=== PATIENT | male | born 1995 | race Caucasian/White ===

== ENCOUNTER 2024-06-01 14:56 | Emergency (ER) | payer MEDICAID, SELFPAY ==
[2024-06-01 16:08] VITALS: BP 138/94; PULSE 82; RESP 19; TEMP 36.7; O2SAT 100; BMI 17.6
--- NOTE | 2024-06-01 16:11 | XR_ITS ---
Examination: PA lateral chest 2 views Technique: Upright PA lateral chest 2 views Exam date and time: June 11, 2024 at 1629 hrs. Indications: Onset chest pain today Findings: Normal heart size Lungs are clear The osseous structures are intact Impression: No active disease
--- NOTE | 2024-06-01 16:11 | EKG_ITS ---
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
--- NOTE | 2024-06-01 16:11 | PD.EDRME ---
Rapid Medical Screening Exam RME Arrival date/time: 06/01/24 14:56 29-year-old male with past medical history of anxiety presents emergency department complaining of palpitations with nausea and vomiting that started earlier today. Chief Complaint: General Adult/Misc Complain Time Seen by Provider: 06/01/24 16:11 Vital signs: Vital Signs Temperature 98.1 F 06/01/24 16:08 Pulse Rate 82 06/01/24 16:08 Respiratory Rate 19 06/01/24 16:08 Blood Pressure 138/94 H 06/01/24 16:08 Pulse Oximetry (%) 100 06/01/24 16:08 Oxygen Delivery Method Room Air 06/01/24 16:08
[2024-06-01 16:38] LABS: Basophils # (Auto) 0.1 Thou/mm3 (0.0-0.2); Basophils % (Auto) 1 % (0-2.5); Eosinophils # (Auto) 0.1 Thou/mm3 (0.0-0.5); Eosinophils % (Auto) 1 % (0-10); Hematocrit 46.7 % (41.0-53.0); Hemoglobin 15.7 g/dL (13.5-16.0); Immature Granulocytes % (Auto) 1 % (0-0); Immature Granulocytes Auto 0.04 Thou/mm3 (0.00-0.00); Lymphocytes # (Auto) 1.4 Thou/mm3 (1.0-4.8); Lymphocytes % (Auto) 23 % (10-50); Mean Corpuscular HGB Conc 33.6 g/dl (31.0-37.0); Mean Corpuscular Hemoglobin 29.8 pg (25.0-35.0); Mean Corpuscular Volume 89 fL (80-100); Monocytes # (Auto) 0.6 Thou/mm3 (0.0-0.8); Monocytes % (Auto) 10 % (0-12); Neutrophils # (Auto) 3.7 Thou/mm3 (1.8-7.7); Neutrophils % (Auto) 63 % (37-80); Nucleated Red Blood Cell % 0 /100 WBC (0); Platelet Count 260 Thou/mm3 (140-440); RDW Standard Deviation 40.1 fL (35.1-43.9); Red Blood Count 5.27 Miln/mm3 (4.50-5.90); White Blood Count 5.9 Thou/mm3 (3.8-10.6)
[2024-06-01 16:55] LABS: Albumin, Serum 5.3 gm/dL (3.5-5.0); Alkaline Phosphatase 76 U/L (46-116); Anion Gap 5 (7-16); Aspartate Amino Transferase 18 U/L (0-34); BUN/Creatinine Ratio 8 Ratio (12-20); Bilirubin,Total 1.1 mg/dL (0.3-1.2); Blood Urea Nitrogen 8 mg/dL (9-23); Carbon Dioxide 30.5 mMol/L (20.0-31.0); Chloride 104 mMol/L (98-107); Estimated Creatinine Clearance 89.7 mL/min (>60); Globulin 2.7 gm/dL (2.3-3.5); Glucose 83 mg/dL (74-106); Osmolality,Calculated 274 (275-295); Potassium 3.9 mMol/L (3.4-5.1); Sodium 139 mMol/L (136-145); Troponin I < 0.002 ng/mL (0.0-0.045); eGFR > 60 See Note
[2024-06-01 17:04] LABS: Alanine Aminotransferase 9 U/L (10-49)
[2024-06-01 17:35] LABS: Amphetamine/Methamp Scrn,U Negative (Negative); Barbiturate Screen,Urine Negative (Negative); Benzodiazepines Screen,Urine Negative (Negative); Benzoylecgonine Screen, Ur Negative (Negative); Fentanyl Screen,Urine Negative (Negative); Opiate Screen,Urine Negative (Negative); THC Screen,Urine Positive (Negative)
[2024-06-01 19:28] VITALS: BP 123/86; PULSE 100; RESP 18; TEMP 37.3; O2SAT 100
--- NOTE | 2024-06-01 19:29 | EDNOTE_ITS ---
ED General RME/HPI General Chief complaint: General Adult/Misc Complain Stated complaint: FELT HEART DROP SEVERAL TIMES THEN HR SHOT UP Time Seen by Provider: 06/01/24 16:11 Arrival date/time: 06/01/24 14:56 RME / HPI RME / HPI narrative: 29-year-old male with past medical history of anxiety presents emergency department complaining of palpitations with nausea and vomiting that started earlier today. According to the patient heart rate dropped to 77 and went up all the way to 120. Lasting for few seconds. Currently patient is not having any symptoms. Related Data Previous Rx's ?Medication ?Instructions ?Recorded ibuprofen 800 mg tablet 800 mg PO TID PRN pain #30 tabs 06/12/22 ondansetron 4 mg disintegrating 4 mg PO Q8H PRN nausea and 07/16/23 tablet vomiting #10 tabs diphenhydramine HCl 25 mg capsule 25 mg PO Q8H PRN allergic symptoms 01/03/24 (Benadryl) #20 caps ibuprofen 600 mg tablet 600 mg PO Q6H #30 tabs 01/03/24 Allergies Allergy/AdvReac Type Severity Reaction Status Date / Time No Known Allergies Allergy Verified 06/01/24 14:59 Review of Systems Review of Systems Narrative Review of Systems: Review of system reviewed and within normal limits except mentioned in HPI ED Exam Narrative Physical exam: VITAL SIGNS: Reviewed. GENERAL APPEARANCE: Alert and interactive, follows commands, no acute distress, HEAD AND FACE: Non-traumatic. ENT: PERRL, pink conjunctivitis, eyelid no trauma, Mucous membrane moist. NECK: Supple, nontender, no nuchal rigidity. CHEST: No tenderness, no crepitus, no paradoxical movement, no retractions. LUNGS: Clear, well ventilated, symmetric, no rales, no wheezing, no ronchi, no stridor, good breath sounds bilaterally. HEART: Regular rate, regular rhythm, no murmur, no gallops. ABDOMEN: Soft, positive bowel sounds, nondistended, no guarding, nontender, no rebound, no masses, RECTAL: Deferred. GENITAL: Deferred. NEUROLOGICAL: Gross motor function intact sensory function intact, Appropriate for age. MUSCULOSKELETAL: low back nontender, full range of motion. EXTREMITIES: Nontender, full range of motion. SKIN: Color pink, dry, no rash, no lacerations, no abrasions, no contusions. LYMPHATICS: Deferred. Course Quality Measures none Orders Category Date Time Status EKG (ED ONLY) *Do not use* NOW Care 06/01/24 16:11 Completed EKG (ED Only) Stat Exams 06/01/24 16:11 Draft XR chest 2V Stat Exams 06/01/24 16:11 Completed CBC Stat Lab 06/01/24 16:21 Completed Comprehensive Metabolic Panel Stat Lab 06/01/24 16:21 Completed Drug Screen,Urine Stat Lab 06/01/24 16:41 Completed Mag [Magnesium] Stat Lab 06/01/24 16:21 Completed Troponin I Stat Lab 06/01/24 16:21 Completed Vital Signs Vital signs: Vital Signs Temperature 98.1 F 06/01/24 16:08 Pulse Rate 82 06/01/24 16:08 Respiratory Rate 19 06/01/24 16:08 Blood Pressure 138/94 H 06/01/24 16:08 Pulse Oximetry (%) 100 06/01/24 16:08 Oxygen Delivery Method Room Air 06/01/24 16:08 MDM Patient data External records reviewed:: None Clinical information provided by:: none Social determinants that could affect healthcare access:: none Patient has the following chronic illnesses:: anxiety How is presenting disease/condition affected by chronic disease/condition?: e xacerbated by Evaluation data The following diagnostics were reviewed and interpreted by me:: lab results, radiology exam(s) and EKG tracing(s) Lab and/or radiology exams considered but not ordered:: none Interpretation Summary: Laboratory workup all came back unremarkable. EKG showed normal sinus rhythm, ventricular rate of 69 bpm, no ST segment elevation depression noted. I personally reviewed and interpreted the x-ray of this patient. There is no acute abnormalities found, no infiltrates no pneumothorax no hemothorax normal chest x-ray. Review of other structures was without significant abnormal findings also. I additionally reviewed the radiologist report and agree with the interpretation. Medications Medications considered but not ordered:: None Medication administrations:: None Consultations Consultation(s) initiated? (list below): No Consultation #1 (Physician, Specialty, Details): None Diagnosis Differential Diagnosis ED Complaint MDM: Palpitation, anxiety, dehydration Most likely diagnosis given after review of the tests above:: Palpitation Admission Indicated Admission indicated?: not indicated Explain why admission is indicated or not indicated:: Stable Admission Request Was there a request for admission?: No Disposition Plan Disposition Plan: Discharge Discharge Attestation Discharge Attestation: The patient was given an opportunity to ask questions and understood the discharge instructions. Discharge instructions specifically effects, indications for sooner follow up or return to the emergency department, and the expected course of current diagnosis. Patient condition: Stable Medical Decision Making MDM Narrative MDM Narrative: 29-year-old male patient with significant history of anxiety,presents emergency department complaining of palpitations with nausea and vomiting that started earlier today. According to the patient heart rate dropped to 77 and went up all the way to 120. Lasting for few seconds. Currently patient is not having any symptoms. Patient's workup today cardiac workup, came back normal. No recurrence of symptoms noted in the emergency room. Patient is ambulatory patient was advised to closely follow-up with PCP and for referral to circus roustabout if symptoms persist. Patient agrees with the plan. Patient's told me that he could be secondary to his anxiety causing the symptoms. Differential Diagnosis Differential Diagnosis: Palpitation, anxiety, dehydration Lab Data 06/01/24 16:21 06/01/24 16:21 Labs: Lab Results 06/01/24 06/01/24 Range/Units 16:21 16:41 WBC 5.9 (3.8-10.6) Thou/mm3 RBC 5.27 (4.50-5.90) Miln/mm3 Hgb 15.7 (13.5-16.0) g/dL Hct 46.7 (41.0-53.0) % MCV 89 (80-100) fL MCH 29.8 (25.0-35.0) pg MCHC 33.6 (31.0-37.0) g/dl RDW Std Deviation 40.1 (35.1-43.9) fL Plt Count 260 (140-440) Thou/mm3 Neut % (Auto) 63 (37-80) % Lymph % (Auto) 23 (10-50) % [place] % (Auto) 10 (0-12) % Eos % (Auto) 1 (0-10) % Baso % (Auto) 1 (0-2.5) % Neut # (Auto) 3.7 (1.8-7.7) Thou/mm3 Lymph # (Auto) 1.4 (1.0-4.8) Thou/mm3 [place] # (Auto) 0.6 (0.0-0.8) Thou/mm3 Eos # (Auto) 0.1 (0.0-0.5) Thou/mm3 Baso # (Auto) 0.1 (0.0-0.2) Thou/mm3 Immature Gran # (Auto) 0.04 H (0.00-0.00) Thou/mm3 Absolute Nucleated RBC 0.00 (0.00-0.00) Thou/mm3 Immature Gran % 1 H (0-0) % Nucleated RBC % 0 (0) /100 WBC Sodium 139 (136-145) mMol/L Potassium 3.9 (3.4-5.1) mMol/L Chloride 104 (98-107) mMol/L Carbon Dioxide 30.5 (20.0-31.0) mMol/L Anion Gap 5 L (7-16) BUN 8 L (9-23) mg/dL Creatinine 1.0 (0.6-1.3) mg/dL Estim Creat Clear Calc 89.7 (>60) mL/min eGFR > 60 (60 - ) See Note BUN/Creatinine Ratio 8 L (12-20) Ratio Glucose 83 (74-106) mg/dL Calculated Osmolality 274 L (275-295) Calcium 10.0 (8.3-10.6) mg/dL Corrected Calcium 10.0 (8.5-10.1) mg/dL Magnesium 2.0 (1.6-2.6) mg/dL Total Bilirubin 1.1 (0.3-1.2) mg/dL AST 18 (0-34) U/L ALT 9 L (10-49) U/L Alkaline Phosphatase 76 (46-116) U/L Troponin I < 0.002 (0.0-0.045) ng/mL Total Protein 8.0 (5.7-8.2) gm/dL Albumin 5.3 H (3.5-5.0) gm/dL Globulin 2.7 (2.3-3.5) gm/dL Albumin/Globulin Ratio 2.0 (1.2-2.2) Urine Opiates Screen Negative (Negative) Urine Fentanyl Screen Negative (Negative) Ur Barbiturates Screen Negative (Negative) U Amphetamin/Meth Scrn Negative (Negative) U Benzodiazepines Scrn Negative (Negative) U Cocaine Metab Screen Negative (Negative) U Marijuana (THC) Screen Positive A (Negative) Discharge Plan Plan Patient Disposition: HOME (Self Care) Disposition Comment: stable Prescriptions/Referrals Prescriptions/Med Rec: No Action ibuprofen 800 mg tablet 800 mg PO TID PRN (Reason: pain) Qty: 30 0RF ondansetron 4 mg tablet,disintegrating 4 mg PO Q8H PRN (Reason: nausea and vomiting) Qty: 10 0RF diphenhydramine HCl [Benadryl] 25 mg capsule 25 mg PO Q8H PRN (Reason: allergic symptoms) Qty: 20 0RF ibuprofen 600 mg tablet 600 mg PO Q6H Qty: 30 0RF Referrals: No Primary/Family,Physician [Primary Care Provider] - In 1 week Problem List Clinical Impression: Palpitations Patient/Caregiver Discharge Instructions Discharge Activity: activity as tolerated Education Materials: ED Palpitations Additional Instructions: Thank you for the opportunity for serving you today. You are stable for discharged . You are advised to: Follow-up with your PCP in 1 to 2 days Return to ED for worsening of symptoms Print Language: Syrian Stand Alone Forms: Sylvia Award Info., Patient Portal Info Letter PA/EDUCATIONAL PROGRAMMING DIRECTOR Supervising Physician PA/EDUCATIONAL PROGRAMMING DIRECTOR Supervising Physician: MD Guerita
== END 2024-06-01 19:32 | disposition home or self-care (01) ==
PROVIDERS: Emergency Provider Emergency Medicine
DX: I49.8 Other specified cardiac arrhythmias (principal); R07.9 Chest pain, unspecified
CPT/HCPCS: 36415; 71046; 80053; 80307; 83735; 84484; 85025; 93005; 99283

== ENCOUNTER 2024-06-02 14:02 | Emergency (ER) | payer MEDICAID, SELFPAY ==
[2024-06-02 14:26] VITALS: BP 117/81; PULSE 78; RESP 16; TEMP 36.9; O2SAT 99; BMI 19.8
--- NOTE | 2024-06-02 14:57 | EKG_ITS ---
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
--- NOTE | 2024-06-02 14:57 | PD.EDRME ---
Rapid Medical Screening Exam RME Arrival date/time: 06/02/24 14:02 29-year-old male presents emergency department complaining of palpitations and heart rate increasing into the 130s at rest and during ambulation. Patient reports similar symptoms happened yesterday at ER visit and discharged home. Patient reports has pending visit with good humor vendor. Chief Complaint: Arrhythmia/Palpitations Vital signs: Vital Signs Temperature 98.4 F 06/02/24 14:26 Pulse Rate 78 06/02/24 14:26 Respiratory Rate 16 06/02/24 14:26 Blood Pressure 117/81 06/02/24 14:26 Pulse Oximetry (%) 99 06/02/24 14:26 Oxygen Delivery Method Room Air 06/02/24 14:26 Vital signs reviewed by provider: Yes
[2024-06-02 15:36] LABS: Basophils % (Auto) 1 % (0-2.5); Eosinophils % (Auto) 1 % (0-10); Hematocrit 45.8 % (41.0-53.0); Hemoglobin 15.6 g/dL (13.5-16.0); Immature Granulocytes % (Auto) 1 % (0-0); Immature Granulocytes Auto 0.03 Thou/mm3 (0.00-0.00); Lymphocytes # (Auto) 1.2 Thou/mm3 (1.0-4.8); Lymphocytes % (Auto) 20 % (10-50); Mean Corpuscular HGB Conc 34.1 g/dl (31.0-37.0); Mean Corpuscular Hemoglobin 30.1 pg (25.0-35.0); Mean Corpuscular Volume 88 fL (80-100); Monocytes # (Auto) 0.5 Thou/mm3 (0.0-0.8); Monocytes % (Auto) 7 % (0-12); Neutrophils # (Auto) 4.5 Thou/mm3 (1.8-7.7); Neutrophils % (Auto) 71 % (37-80); Nucleated Red Blood Cell % 0 /100 WBC (0); Platelet Count 251 Thou/mm3 (140-440); RDW Standard Deviation 39.6 fL (35.1-43.9); Red Blood Count 5.19 Miln/mm3 (4.50-5.90); White Blood Count 6.3 Thou/mm3 (3.8-10.6)
[2024-06-02 15:41] LABS: B-Type Natriuretic Peptide < 20 pg/mL (0-100)
[2024-06-02 15:50] LABS: INR 1.1 (0.9-1.3); Partial Thromboplastin Time 26.3 Seconds (22.0-36.0)
[2024-06-02 15:52] LABS: Alanine Aminotransferase 9 U/L (10-49); Albumin, Serum 5.2 gm/dL (3.5-5.0); Albumin/Globulin Ratio 1.9 (1.2-2.2); Alkaline Phosphatase 68 U/L (46-116); Anion Gap 6 (7-16); Aspartate Amino Transferase 18 U/L (0-34); BUN/Creatinine Ratio 7 Ratio (12-20); Bilirubin,Total 1.8 mg/dL (0.3-1.2); Blood Urea Nitrogen 7 mg/dL (9-23); Calcium 10.2 mg/dL (8.3-10.6); Calcium (Corrected) 10.2 mg/dL (8.5-10.1); Carbon Dioxide 26.9 mMol/L (20.0-31.0); Chloride 103 mMol/L (98-107); Estimated Creatinine Clearance 89.3 mL/min (>60); Globulin 2.8 gm/dL (2.3-3.5); Glucose 94 mg/dL (74-106); LDH (Lactate Dehydrogenase) 151 U/L (120-246); Osmolality,Calculated 269 (275-295); Potassium 3.9 mMol/L (3.4-5.1); Sodium 136 mMol/L (136-145); Troponin I < 0.020 ng/mL (0.0-0.045); eGFR > 60 See Note
--- NOTE | 2024-06-02 16:24 | EDNOTE_ITS ---
ED Arrhythmia Palp. RME/HPI General Chief Complaint: Arrhythmia/Palpitations Stated Complaint: PALPITATONS, DIZZY, TIRED, ANXIOUS Time Seen by Provider: 06/02/24 16:00 Source: patient Arrival date/time: 06/02/24 14:02 29-year-old male presents emergency department complaining of palpitations and heart rate increasing into the 130s at rest and during ambulation. Patient reports similar symptoms happened yesterday at ER visit and discharged home. Patient reports has pending visit with manufacturing manager. Mode of arrival: ambulatory Limitations: no limitations RME / HPI RME / HPI narrative: 06/02/24 14:02 29-year-old male presents emergency department complaining of palpitations and heart rate increasing into the 130s at rest and during ambulation. Patient reports similar symptoms happened yesterday at ER visit and discharged home. Patient reports has pending visit with manufacturing manager. Related Data Previous Rx's ?Medication ?Instructions ?Recorded ibuprofen 800 mg tablet 800 mg PO TID PRN pain #30 tabs 06/12/22 ondansetron 4 mg disintegrating 4 mg PO Q8H PRN nausea and 07/16/23 tablet vomiting #10 tabs diphenhydramine HCl 25 mg capsule 25 mg PO Q8H PRN allergic symptoms 01/03/24 (Benadryl) #20 caps ibuprofen 600 mg tablet 600 mg PO Q6H #30 tabs 01/03/24 Allergies Allergy/AdvReac Type Severity Reaction Status Date / Time No Known Allergies Allergy Verified 06/01/24 14:59 Review of Systems Review of Systems Systems Reviewed: All systems reviewed, normal except as documented Constitutional Constitutional: Reports system reviewed and no additional complaints, except as documented, Denies body ache(s), Denies chills and Denies fever(s) Eyes Eyes: Reports system reviewed and no additional complaints, except as documented and Denies change in vision ENT Ears, Nose, Mouth, and Throat: Reports system reviewed and no additional complaints, except as documented, Denies disequilibrium, Denies dizziness, Denies sore throat and Denies vertigo Cardiovascular Cardiovascular: Reports system reviewed and no additional complaints, except as documented, Denies chest pain, Denies dyspnea and Reports rapid heart rate Respiratory Respiratory: Reports system reviewed and no additional complaints, except as documented, Denies chest congestion, Denies cough and Denies dyspnea Gastrointestinal Gastrointestinal: Reports system reviewed and no additional complaints, except as documented, Denies abdominal pain, Denies nausea and Denies vomiting Musculoskeletal Musculoskeletal: Reports system reviewed and no additional complaints, except as documented, Denies abnormal gait and Denies arthralgias Integumentary/Breasts Skin/Breast: Reports system reviewed and no additional complaints, except as documented, Denies erythema, Denies rash and Denies wounds Neurologic Neurologic: Reports system reviewed and no additional complaints, except as documented, Denies abnormal gait, Denies disequilibrium, Denies dizziness and Denies vertigo Past Medical History Past Medical History CARDIAC: Negative Congestive Heart Failure RESPIRATORY: Negative Chronic Obstructive Pulmonary Disease (COPD) GENITOURINARY: Negative Renal Disease ENDOCRINE: Negative Diabetes Mellitus Type 1 or Diabetes Mellitus Type 2 Social History SMOKING STATUS: Never smoker ED Exam General Limitations: Present no limitations General appearance: Present alert and in no apparent distress Head Head exam: Present atraumatic Eye Eye exam: Present normal appearance, PERRL and EOMI ENT ENT exam: Present normal exam, normal oropharynx and mucous membranes moist Neck Neck exam: Present normal inspection, full ROM and trachea midline Chest Chest inspection: Present normal inspection and symmetric chest wall rise Respiratory Respiratory exam: Present normal lung sounds bilaterally Cardiovascular Cardiovascular exam: Present regular rate, normal rhythm and normal heart sounds Abdominal Exam Abdominal exam: Present soft and normal bowel sounds Extremities Exam Extremities exam: Present normal inspection and full ROM Back Exam Back exam: Present normal inspection and full ROM Neurological Exam Neurological exam: Present alert, oriented X3 and CN II-XII intact Psychiatric Psychiatric exam: Present normal affect and normal mood Skin Skin exam: Present warm, dry, intact and normal color Course Quality Measures none Orders Category Date Time Status EKG (ED ONLY) *Do not use* NOW Care 06/02/24 14:57 Completed EKG (ED Only) Stat Exams 06/02/24 14:57 Draft B-Type Natriuretic Peptide Stat Lab 06/02/24 15:15 Completed CBC Stat Lab 06/02/24 15:15 Completed Comprehensive Metabolic Panel Stat Lab 06/02/24 15:15 Completed Drug Screen,Urine Stat Lab 06/02/24 16:00 Received LDH (Lactate Dehydrogenase) Stat Lab 06/02/24 15:15 Completed Magnesium Stat Lab 06/02/24 15:15 Completed Partial Thromboplastin Time Stat Lab 06/02/24 15:15 Completed Prothrombin Time with INR Stat Lab 06/02/24 15:15 Completed Troponin I Stat Lab 06/02/24 15:15 Completed Vital Signs Vital signs: Vital Signs Temperature 98.4 F 06/02/24 14:26 Pulse Rate 78 06/02/24 14:26 Respiratory Rate 16 06/02/24 14:26 Blood Pressure 117/81 06/02/24 14:26 Pulse Oximetry (%) 99 06/02/24 14:26 Oxygen Delivery Method Room Air 06/02/24 14:26 99% RA WNL. Procedures -ED EKG Interpretation #1: Date of EK06/02/24 Time of EK:06 Rate: 63 Interpretation: Interpreted by me EKG Impression: Normal sinus rhythm, No acute ST-T changes, No ectopy and No ischemic changes Arrhythmia/Palpitations MDM Narrative MDM Narrative:: 29-year-old male presents emergency department complaining of palpitations and heart rate increasing into the 130s at rest and during ambulation. Patient reports similar symptoms happened yesterday at ER visit and discharged home. Patient reports has pending visit with manufacturing manager. Patient denies any energy drink use. Patient reports fast heart only last a couple seconds. Patients CBC, CMP, Troponin, BNP, and Chest XR unremarkable. EKG SR. Patient appears non toxic and hemodynamically stable. Instructed follow up with primary care provider and keep visit with manufacturing manager. Instructed return to ER for any worsening symptoms or as needed. Patient data External records reviewed:: [facility] previous records Clinical information provided by:: patient Social determinants that could affect healthcare access:: none Patient has the following chronic illnesses:: see chart How is presenting disease/condition affected by chronic disease/condition?: uneffected by Evaluation data The following diagnostics were reviewed and interpreted by me:: lab results, radiology exam(s) and EKG tracing(s) Lab and/or radiology exams considered but not ordered:: ordered Interpretation Summary: interpreted by me Medications / Prescriptions Medications or Prescriptions considered but not ordered:: n/a Medication administrations:: n/a Consultations Consultation(s) initiated? (list below): No Diagnosis Differential diagnosis arrhythmia/palpitations: palpitations, anxiety, sinus tachycardia, supraventricular tachycardia and WPW Most likely diagnosis given after review of the tests above:: anxiety palpitations Admission Indicated Admission indicated?: not indicated Admission Request Was there a request for admission?: No Disposition Plan Disposition Plan: Discharge Discharge Attestation Discharge Attestation: The patient and all family members were given an opportunity to ask questions and understood the discharge instructions. Discharge instructions specifically effects, indications for sooner follow up or return to the emergency department, and the expected course of current diagnosis. Patient condition: Stable Discharge Plan Plan Patient Disposition: HOME (Self Care) Disposition Comment: Stable Prescriptions/Referrals Prescriptions/Med Rec: No Action ibuprofen 800 mg tablet 800 mg PO TID PRN (Reason: pain) Qty: 30 0RF ondansetron 4 mg tablet,disintegrating 4 mg PO Q8H PRN (Reason: nausea and vomiting) Qty: 10 0RF diphenhydramine HCl [Benadryl] 25 mg capsule 25 mg PO Q8H PRN (Reason: allergic symptoms) Qty: 20 0RF ibuprofen 600 mg tablet 600 mg PO Q6H Qty: 30 0RF Referrals: No Primary/Family,Physician [Primary Care Provider] - In 1 week Problem List Clinical Impression: Anxiety, Palpitations Patient/Caregiver Discharge Instructions Discharge Activity: activity as tolerated Education Materials: Understanding Heart Palpitations, ED Anxiety Reaction, ED Palpitations Additional Instructions: Follow-up with primary care provider 24 to 48 hours. Follow-up with manufacturing manager as discussed. Return to emergency department for any worsening symptoms or as needed. Print Language: Haitian Stand Alone Forms: Sylvia Award Info., Patient Portal Info Letter PA/PRINT PRODUCTION COORDINATOR Supervising Physician PA/PRINT PRODUCTION COORDINATOR Supervising Physician: Dr. Fowler
[2024-06-02 16:33] VITALS: BP 135/67; PULSE 87; RESP 19; TEMP 37.1; O2SAT 99
[2024-06-02 16:48] LABS: Amphetamine/Methamp Scrn,U Negative (Negative); Barbiturate Screen,Urine Negative (Negative); Benzodiazepines Screen,Urine Negative (Negative); Benzoylecgonine Screen, Ur Negative (Negative); Fentanyl Screen,Urine Negative (Negative); Opiate Screen,Urine Negative (Negative); THC Screen,Urine Positive (Negative)
== END 2024-06-02 16:33 | disposition home or self-care (01) ==
PROVIDERS: Emergency Provider Emergency Medicine
DX: F41.9 Anxiety disorder, unspecified (principal); R00.2 Palpitations
CPT/HCPCS: 36415; 80053; 80307; 83615; 83735; 83880; 84484; 85025; 85610; 85730; 93005; 99283

== ENCOUNTER 2024-06-04 13:40 | Emergency (ER) | payer MEDICAID, SELFPAY ==
[2024-06-04 14:30] VITALS: BP 126/84; PULSE 74; RESP 17; TEMP 37.1; O2SAT 99; BMI 19.3
--- NOTE | 2024-06-04 14:31 | EKG_ITS ---
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
--- NOTE | 2024-06-04 14:31 | XR_ITS ---
Examination: PA lateral chest 2 views TECHNIQUE: Upright PA lateral chest 2 views Exam date and time: June 04, 2024 1455 hours INDICATIONS: Intermittent chest pain several days FINDINGS: Normal heart size No pneumonia or pulmonary edema Intact osseous structures Stable tiny pulmonary nodule right upper lobe compared with June 01, 2024 IMPRESSION: No active disease
[2024-06-04 15:53] LABS: Troponin I < 0.020 ng/mL (0.0-0.045)
--- NOTE | 2024-06-04 15:58 | EDNOTE_ITS ---
ED Chest Pain RME/HPI General Chief Complaint: Chest Pain Stated Complaint: HEART PALPITATIONS X MONDAY; UNABLE TO EAT Time Seen by Provider: 06/04/24 13:57 Arrival date/time: 06/04/24 13:40 29-year-old male with history of anxiety presents the emergency department complaint of anxiety and palpitations patient apologizes as this has been his third visit to the emergency department for the same Limitations: no limitations Related Data Previous Rx's ?Medication ?Instructions ?Recorded ibuprofen 800 mg tablet 800 mg PO TID PRN pain #30 tabs 06/12/22 ondansetron 4 mg disintegrating 4 mg PO Q8H PRN nausea and 07/16/23 tablet vomiting #10 tabs diphenhydramine HCl 25 mg capsule 25 mg PO Q8H PRN allergic symptoms 01/03/24 (Benadryl) #20 caps ibuprofen 600 mg tablet 600 mg PO Q6H #30 tabs 01/03/24 Allergies Allergy/AdvReac Type Severity Reaction Status Date / Time No Known Allergies Allergy Verified 06/04/24 13:43 Review of Systems Review of Systems Systems Reviewed: All systems reviewed, normal except as documented Constitutional Constitutional: Reports system reviewed and no additional complaints, except as documented, Denies fever(s) and Denies headache(s) Eyes Eyes: Reports system reviewed and no additional complaints, except as documented and Denies blurry vision ENT Ears, Nose, Mouth, and Throat: Reports system reviewed and no additional complaints, except as documented, Denies headache(s), Denies nasal congestion and Denies nasal discharge Cardiovascular Cardiovascular: Reports system reviewed and no additional complaints, except as documented, Denies chest pain and Denies dyspnea Respiratory Respiratory: Reports system reviewed and no additional complaints, except as documented, Denies chest congestion, Denies cough and Denies dyspnea Gastrointestinal Gastrointestinal: Reports system reviewed and no additional complaints, except as documented and Denies abdominal pain Integumentary/Breasts Skin/Breast: Reports system reviewed and no additional complaints, except as documented and Denies rash Neurologic Neurologic: Reports system reviewed and no additional complaints, except as documented, Reports as per HPI and Denies headache(s) Psychiatric Psychiatric: Reports system reviewed and no additional complaints, except as documented, Reports anxiety, Denies homicidal ideation, Denies hopelessness and Denies suicidal ideation ED Exam General Limitations: Present no limitations General appearance: Present alert and in no apparent distress Head Head exam: Present atraumatic Eye Eye exam: Present normal appearance, PERRL and EOMI ENT ENT exam: Present normal exam, normal oropharynx and mucous membranes moist Neck Neck exam: Present normal inspection, full ROM and trachea midline Chest Chest inspection: Present normal inspection and symmetric chest wall rise Respiratory Respiratory exam: Present normal lung sounds bilaterally Cardiovascular Cardiovascular exam: Present regular rate, normal rhythm and normal heart sounds; Absent bradycardia, tachycardia, irregular rhythm or JVD Abdominal Exam Abdominal exam: Present soft and normal bowel sounds Extremities Exam Extremities exam: Present normal inspection and full ROM Back Exam Back exam: Present normal inspection and full ROM Neurological Exam Neurological exam: Present alert, oriented X3, CN II-XII intact, normal gait and reflexes normal; Absent motor sensory deficit Psychiatric Psychiatric exam: Present anxious; Absent flat affect, manic, homicidal ideation or suicidal ideation Skin Skin exam: Present warm, dry, intact and normal color Course Quality Measures none Orders Category Date Time Status EKG (ED ONLY) *Do not use* NOW Care 06/04/24 14:31 Completed EKG (ED Only) Stat Exams 06/04/24 14:31 Draft XR chest 2V Stat Exams 06/04/24 14:31 Completed Troponin I Stat Lab 06/04/24 15:14 Completed Vital Signs Vital signs: Vital Signs Temperature 98.8 F 06/04/24 14:30 Pulse Rate 74 06/04/24 14:30 Respiratory Rate 17 06/04/24 14:30 Blood Pressure 126/84 06/04/24 14:30 Pulse Oximetry (%) 99 06/04/24 14:30 Oxygen Delivery Method Room Air 06/04/24 14:30 O2 saturation 99% room air within normal limits Procedures -ED EKG Interpretation #1: Date of EK06/04/24 Time of EK:37 Rate: 68 Interpretation: Interpreted by me EKG Impression: Normal sinus rhythm, No acute ST-T changes, No ectopy, Sinus arrhythmia, No ischemic changes, Normal QRS and Normal intervals Chest Pain MDM Narrative MDM Narrative:: 29-year-old male with history of anxiety presents the emergency department complaint of anxiety and palpitations patient apologizes as this has been his third visit to the emergency department for the same On exam patient does appear to be anxious Chest x-ray, troponin and EKG obtained no acute emergent findings noted Symptoms consistent with anxiety Patient discharged home in no distress to follow-up with primary care doctor in the next 24 to 48 hours and for any worsening symptoms to return to the ER immediately Patient data External records reviewed:: [facility] previous records Clinical information provided by:: patient Social determinants that could affect healthcare access:: mental health Patient has the following chronic illnesses:: Anxiety How is presenting disease/condition affected by chronic disease/condition?: caused by Evaluation data The following diagnostics were reviewed and interpreted by me:: lab results, radiology exam(s) and EKG tracing(s) Lab and/or radiology exams considered but not ordered:: Labs, radiology, EKG obtained Interpretation Summary: Reviewed by me Medications / Prescriptions Medications or Prescriptions considered but not ordered:: Given no meds Medication administrations:: No meds given Consultations Consultation(s) initiated? (list below): No Diagnosis Chest Pain Differential Diagnosis: atypical chest pain, st elevation myocardial infarction, costochondritis and other (Anxiety) Most likely diagnosis given after review of the tests above:: Anxiety Admission Indicated Admission indicated?: not indicated Admission Request Was there a request for admission?: No Disposition Plan Disposition Plan: Discharge Discharge Attestation Discharge Attestation: The patient and all family members were given an opportunity to ask questions and understood the discharge instructions. Discharge instructions specifically effects, indications for sooner follow up or return to the emergency department, and the expected course of current diagnosis. Patient condition: Stable Discharge Plan Plan Patient Disposition: HOME (Self Care) Disposition Comment: Stable Prescriptions/Referrals Prescriptions/Med Rec: No Action ibuprofen 800 mg tablet 800 mg PO TID PRN (Reason: pain) Qty: 30 0RF ondansetron 4 mg tablet,disintegrating 4 mg PO Q8H PRN (Reason: nausea and vomiting) Qty: 10 0RF diphenhydramine HCl [Benadryl] 25 mg capsule 25 mg PO Q8H PRN (Reason: allergic symptoms) Qty: 20 0RF ibuprofen 600 mg tablet 600 mg PO Q6H Qty: 30 0RF Referrals: No Primary/Family,Physician [Primary Care Provider] - In 1 week Problem List Clinical Impression: Anxiety, Chest pain, non-cardiac Patient/Caregiver Discharge Instructions Additional Instructions: Please follow up with your primary care doctor in the next 24-48hrs for any worsening symptoms return here immediately Print Language: Yakut Stand Alone Forms: [employer] Patient Portal Info Letter PA/BALLOON TESTER Supervising Physician PA/BALLOON TESTER Supervising Physician: Dr sauer
[2024-06-04 16:32] VITALS: PULSE 72; RESP 18; TEMP 37; O2SAT 98
== END 2024-06-04 16:37 | disposition home or self-care (01) ==
PROVIDERS: Nurse Practitioner Primary Care; Emergency Provider Emergency Medicine
DX: F41.9 Anxiety disorder, unspecified (principal); R07.89 Other chest pain; I49.8 Other specified cardiac arrhythmias
CPT/HCPCS: 36415; 71046; 84484; 93005; 99283

== ENCOUNTER 2024-06-11 05:45 | Emergency (ER) | payer MEDICAID, SELFPAY ==
[2024-06-11 05:47] VITALS: BMI 19.8
[2024-06-11 05:52] VITALS: BP 126/89; PULSE 80; RESP 19; TEMP 36.6; O2SAT 99
--- NOTE | 2024-06-11 05:55 | EKG_ITS ---
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
--- NOTE | 2024-06-11 06:19 | PD.EDANX ---
ED Anxiety RME/HPI General Chief Complaint: Arrhythmia/Palpitations Stated Complaint: FEELS LIKE HEART SKIPPING BEAT Time Seen by Provider: 06/11/24 06:14 Arrival date/time: 06/11/24 05:45 29-year-old male with anxiety presents to the emergency department today stating that an episode while laying flat last night where he had a skipped beat patient reports he went to come in to get it checked out Limitations: no limitations Related Data Previous Rx's ?Medication ?Instructions ?Recorded ibuprofen 800 mg tablet 800 mg PO TID PRN pain #30 tabs 06/12/22 ondansetron 4 mg disintegrating 4 mg PO Q8H PRN nausea and 07/16/23 tablet vomiting #10 tabs diphenhydramine HCl 25 mg capsule 25 mg PO Q8H PRN allergic symptoms 01/03/24 (Benadryl) #20 caps ibuprofen 600 mg tablet 600 mg PO Q6H #30 tabs 01/03/24 Allergies Allergy/AdvReac Type Severity Reaction Status Date / Time No Known Allergies Allergy Verified 06/04/24 13:43 Review of Systems Review of Systems Systems Reviewed: All systems reviewed, normal except as documented Constitutional Constitutional: Reports system reviewed and no additional complaints, except as documented, Denies fever(s) and Denies headache(s) Eyes Eyes: Reports system reviewed and no additional complaints, except as documented and Denies blurry vision ENT Ears, Nose, Mouth, and Throat: Reports system reviewed and no additional complaints, except as documented, Denies headache(s), Denies nasal congestion and Denies nasal discharge Cardiovascular Cardiovascular: Reports system reviewed and no additional complaints, except as documented, Denies chest pain and Denies dyspnea Respiratory Respiratory: Reports system reviewed and no additional complaints, except as documented, Denies chest congestion, Denies cough and Denies dyspnea Gastrointestinal Gastrointestinal: Reports system reviewed and no additional complaints, except as documented and Denies abdominal pain Integumentary/Breasts Skin/Breast: Reports system reviewed and no additional complaints, except as documented and Denies rash Neurologic Neurologic: Reports system reviewed and no additional complaints, except as documented, Reports as per HPI and Denies headache(s) Psychiatric Psychiatric: Reports system reviewed and no additional complaints, except as documented and Reports anxiety Past Medical History Past Medical History NEUROLOGIC: Negative Neurological Disorders CARDIAC: Negative Cardiac Disorders or Congestive Heart Failure RESPIRATORY: Negative Chronic Obstructive Pulmonary Disease (COPD) GENITOURINARY: Negative Renal Disease ENDOCRINE: Negative Diabetes Mellitus Type 1 or Diabetes Mellitus Type 2 Social History SMOKING STATUS: Never smoker ED Exam General Limitations: Present no limitations General appearance: Present alert and in no apparent distress Head Head exam: Present atraumatic Eye Eye exam: Present normal appearance, PERRL and EOMI ENT ENT exam: Present normal exam, normal oropharynx and mucous membranes moist Neck Neck exam: Present normal inspection, full ROM and trachea midline Chest Chest inspection: Present normal inspection and symmetric chest wall rise Respiratory Respiratory exam: Present normal lung sounds bilaterally Cardiovascular Cardiovascular exam: Present regular rate, normal rhythm and normal heart sounds Abdominal Exam Abdominal exam: Present soft and normal bowel sounds Extremities Exam Extremities exam: Present normal inspection and full ROM Back Exam Back exam: Present normal inspection and full ROM Neurological Exam Neurological exam: Present alert, oriented X3 and CN II-XII intact Psychiatric Psychiatric exam: Present anxious; Absent manic, homicidal ideation or suicidal ideation Skin Skin exam: Present warm, dry, intact and normal color Course Quality Measures none Orders Category Date Time Status EKG (ED ONLY) *Do not use* NOW Care 06/11/24 05:55 Completed EKG (ED Only) Stat Exams 06/11/24 05:55 Draft Vital Signs Vital signs: Vital Signs Temperature 98 F 06/11/24 05:52 Pulse Rate 80 06/11/24 05:52 Respiratory Rate 19 06/11/24 05:52 Blood Pressure 126/89 H 06/11/24 05:52 Pulse Oximetry (%) 99 06/11/24 05:52 Oxygen Delivery Method Room Air 06/11/24 05:52 O2 saturation 99% room air within normal limits Procedures -ED EKG Interpretation #1: Date of EK06/11/24 Time of EK:06 Rate: 76 Interpretation: Interpreted by me EKG Impression: Normal sinus rhythm, No acute ST-T changes, No ectopy, No ischemic changes, Normal QRS and Normal intervals Anxiety MDM Narrative MDM Narrative: 29-year-old male with anxiety presents to the emergency department today stating that an episode while laying flat last night where he had a skipped beat patient reports he went to come in to get it checked out On exam patient well-appearing patient does not appear ill or toxic patient's not appear in acute distress heart sounds are normal EKG is normal Symptoms highly consistent with anxiety Patient reports no chest pain no shortness of breath Patient discharged home in no distress to follow-up with primary care doctor in the next 24 to 48 hours and for any worsening symptoms to return to the ER immediately Patient data External records reviewed:: [facility] previous records Clinical information provided by:: patient Social determinants that could affect healthcare access:: none Patient has the following chronic illnesses:: Anxiety How is presenting disease/condition affected by chronic disease/condition?: caused by Evaluation data The following diagnostics were reviewed and interpreted by me:: EKG tracing(s) Lab and/or radiology exams considered but not ordered:: EKG obtained Interpretation Summary: Reviewed by me Medications / Prescriptions Medications or Prescriptions considered but not ordered:: No meds Medication administrations:: No meds Consultations Consultation(s) initiated? (list below): No Diagnosis Differential diagnosis anxiety: hyperventilation, panic disorder and acute anxiety Most likely diagnosis given after review of the tests above:: Anxiety Admission Indicated Admission indicated?: not indicated Admission Request Was there a request for admission?: No Disposition Plan Disposition Plan: Discharge Discharge Attestation Discharge Attestation: The patient and all family members were given an opportunity to ask questions and understood the discharge instructions. Discharge instructions specifically effects, indications for sooner follow up or return to the emergency department, and the expected course of current diagnosis. Patient condition: Stable Discharge Plan Plan Patient Disposition: HOME (Self Care) Disposition Comment: Stable Prescriptions/Referrals Prescriptions/Med Rec: No Action ibuprofen 800 mg tablet 800 mg PO TID PRN (Reason: pain) Qty: 30 0RF ondansetron 4 mg tablet,disintegrating 4 mg PO Q8H PRN (Reason: nausea and vomiting) Qty: 10 0RF diphenhydramine HCl [Benadryl] 25 mg capsule 25 mg PO Q8H PRN (Reason: allergic symptoms) Qty: 20 0RF ibuprofen 600 mg tablet 600 mg PO Q6H Qty: 30 0RF Problem List Clinical Impression: Anxiety Patient/Caregiver Discharge Instructions Education Materials: ED Anxiety Reaction Additional Instructions: Please follow up with your primary care doctor in the next 24-48hrs for any worsening symptoms return here immediately Print Language: Icelandic Stand Alone Forms: [employer]., Patient Portal Info Letter Attestation Attestation The patient was seen by the midlevel practitioner. I, the co-signing physician, was present during the entire ER visit. While I did not physically examine the patient, I was available for consultation as needed.
== END 2024-06-11 06:27 | disposition home or self-care (01) ==
LOC: SERX 06:26
PROVIDERS: Emergency Provider Emergency Medicine; PCP Nurse Practitioner Family
DX: F41.9 Anxiety disorder, unspecified (principal); R94.31 Abnormal electrocardiogram [ECG] [EKG]
CPT/HCPCS: 93005; 99283

== ENCOUNTER 2024-06-29 01:34 | Emergency (ER) | payer MEDICAID, SELFPAY ==
[2024-06-29 01:35] VITALS: BMI 20.5
[2024-06-29 01:46] VITALS: BP 129/87; PULSE 73; RESP 19; TEMP 36.6; O2SAT 99
[2024-06-29 02:02] VITALS: RESP 18
--- NOTE | 2024-06-29 02:02 | EDNOTE_ITS ---
ED Arrhythmia Palp. RME/HPI General Chief Complaint: Arrhythmia/Palpitations Stated Complaint: HEART SKIPPING A BEAT . Time Seen by Provider: 06/29/24 01:54 Arrival date/time: 06/29/24 01:34 29M with history of anxiety and marijuana use presents to ED with 4 heart palps today. Patient does have increased stress at home due to living with ex. Patient has cardiology appt in August. Limitations: no limitations Related Data Previous Rx's ?Medication ?Instructions ?Recorded ibuprofen 800 mg tablet 800 mg PO TID PRN pain #30 tabs 06/12/22 ondansetron 4 mg disintegrating 4 mg PO Q8H PRN nausea and 07/16/23 tablet vomiting #10 tabs diphenhydramine HCl 25 mg capsule 25 mg PO Q8H PRN allergic symptoms 01/03/24 (Benadryl) #20 caps ibuprofen 600 mg tablet 600 mg PO Q6H #30 tabs 01/03/24 Allergies Allergy/AdvReac Type Severity Reaction Status Date / Time No Known Allergies Allergy Verified 06/29/24 01:37 Review of Systems Review of Systems Systems Reviewed: All systems reviewed, normal except as documented Constitutional Constitutional: Reports system reviewed and no additional complaints, except as documented, Denies fever(s) and Denies headache(s) ENT Ears, Nose, Mouth, and Throat: Denies disequilibrium and Denies headache(s) Cardiovascular Cardiovascular: Reports system reviewed and no additional complaints, except as documented, Reports as per HPI, Denies chest pain, Denies dyspnea and Reports palpitations Respiratory Respiratory: Reports system reviewed and no additional complaints, except as documented, Denies cough and Denies dyspnea Gastrointestinal Gastrointestinal: Reports system reviewed and no additional complaints, except as documented, Denies abdominal pain, Denies nausea and Denies vomiting Neurologic Neurologic: Reports system reviewed and no additional complaints, except as documented, Denies confusion, Denies disequilibrium and Denies headache(s) Psychiatric Psychiatric: Denies confusion Endocrine Endocrine: Reports palpitations Past Medical History Past Medical History NEUROLOGIC: Negative Neurological Disorders CARDIAC: Negative Cardiac Disorders or Congestive Heart Failure RESPIRATORY: Negative Chronic Obstructive Pulmonary Disease (COPD) GENITOURINARY: Negative Renal Disease ENDOCRINE: Negative Diabetes Mellitus Type 1 or Diabetes Mellitus Type 2 Social History SMOKING STATUS: Never smoker ED Exam General Limitations: Present no limitations General appearance: Present alert and in no apparent distress Head Head exam: Present atraumatic Eye Eye exam: Present normal appearance, PERRL and EOMI ENT ENT exam: Present normal exam, normal oropharynx and mucous membranes moist Neck Neck exam: Present normal inspection, full ROM and trachea midline Chest Chest inspection: Present normal inspection and symmetric chest wall rise Respiratory Respiratory exam: Present normal lung sounds bilaterally Cardiovascular Cardiovascular exam: Present regular rate, normal rhythm and normal heart sounds Abdominal Exam Abdominal exam: Present soft and normal bowel sounds Extremities Exam Extremities exam: Present normal inspection and full ROM Back Exam Back exam: Present normal inspection and full ROM Neurological Exam Neurological exam: Present alert, oriented X3 and CN II-XII intact Psychiatric Psychiatric exam: Present normal affect and anxious Skin Skin exam: Present warm, dry, intact and normal color Course Quality Measures none Orders Category Date Time Status EKG (ED ONLY) *Do not use* NOW Care 06/29/24 01:40 Completed EKG (ED Only) Stat Exams 06/29/24 01:40 Ordered Vital Signs Vital signs: Vital Signs Temperature 97.8 F 06/29/24 01:46 Pulse Rate 73 06/29/24 01:46 Respiratory Rate 19 06/29/24 01:46 Blood Pressure 129/87 H 06/29/24 01:46 Pulse Oximetry (%) 99 06/29/24 01:46 Oxygen Delivery Method Room Air 06/29/24 01:46 Arrhythmia/Palpitations MDM Narrative MDM Narrative:: 29M with history of anxiety and marijuana use presents to ED with 4 heart palps today. Patient does have increased stress at home due to living with ex. Patient has cardiology appt in August. Physical exam reveals normal pupil response and EOM. Clear ENT and lungs. RRR. Patient is afebrile, alert, but anxious. EKG is NSR. Patient showed EKG emily from [employer] that shows a single PVC. Patient just wanted reassurance. 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 Patient data External records reviewed:: [facility] previous records Clinical information provided by:: patient Social determinants that could affect healthcare access:: mental health Patient has the following chronic illnesses:: anxiety How is presenting disease/condition affected by chronic disease/condition?: exacerbated by Evaluation data The following diagnostics were reviewed and interpreted by me:: EKG tracing(s) Lab and/or radiology exams considered but not ordered:: ordered Interpretation Summary: above Medications / Prescriptions Medications or Prescriptions considered but not ordered:: not ordered Medication administrations:: n/a Consultations Consultation(s) initiated? (list below): No Diagnosis Differential diagnosis arrhythmia/palpitations: palpitations, anxiety, sinus tachycardia, artial fibrillation, artial flutter, ventricular premature beats, supraventricular tachycardia, ventricular tachycardia and WPW Most likely diagnosis given after review of the tests above:: PVC Admission Indicated Admission indicated?: not indicated Admission Request Was there a request for admission?: No Disposition Plan Disposition Plan: Discharge Discharge Attestation Discharge Attestation: The patient and all family members were given an opportunity to ask questions and understood the discharge instructions. Discharge instructions specifically effects, indications for sooner follow up or return to the emergency department, and the expected course of current diagnosis. Patient condition: Stable Discharge Plan Plan Patient Disposition: HOME (Self Care) Disposition Comment: Stable Prescriptions/Referrals Prescriptions/Med Rec: No Action ibuprofen 800 mg tablet 800 mg PO TID PRN (Reason: pain) Qty: 30 0RF ondansetron 4 mg tablet,disintegrating 4 mg PO Q8H PRN (Reason: nausea and vomiting) Qty: 10 0RF diphenhydramine HCl [Benadryl] 25 mg capsule 25 mg PO Q8H PRN (Reason: allergic symptoms) Qty: 20 0RF ibuprofen 600 mg tablet 600 mg PO Q6H Qty: 30 0RF Problem List Clinical Impression: Asymptomatic PVCs, Anxiety Patient/Caregiver Discharge Instructions Education Materials: Your Body's Response to Anxiety, PVCs Additional Instructions: Please follow-up with PCP within 24-48 hours and return immediately if symptoms worsen. Good luck with cardiology appt! Print Language: Hungarian Stand Alone Forms: Patient Portal Info Letter ADAMA/ETTA Supervising Physician ADAMA/ETTA Supervising Physician: Dr. Wilkins
== END 2024-06-29 02:03 | disposition home or self-care (01) ==
LOC: SERX 03:58
PROVIDERS: Emergency Provider Emergency Medicine
DX: I49.3 Ventricular premature depolarization (principal); F41.9 Anxiety disorder, unspecified
CPT/HCPCS: 93005; 99283

== ENCOUNTER 2024-07-26 07:20 | Emergency (ER) | payer MEDICAID, SELFPAY ==
--- NOTE | 2024-07-26 07:33 | EKG_ITS ---
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
[2024-07-26 07:34] VITALS: BP 140/87; PULSE 73; RESP 19; TEMP 37.1; O2SAT 95; BMI 19.8
--- NOTE | 2024-07-26 07:34 | PD.EDRME ---
Rapid Medical Screening Exam RME Arrival date/time: 07/26/24 07:20 29-year-old male with no known medical history presents to the emergency room with a chief complaint of lightheadedness, palpitations that began last night at 11 PM. Patient states within the last month he has had increased palpitations. I have greeted and performed a focused initial assessment of this patient. A comprehensive ED assessment and evaluation of the patient, analysis of all test results, and completion of the medical decision making process will be conducted by additional ED providers. Chief Complaint: Chest Pain Vital signs reviewed by provider: Yes
[2024-07-26 08:09] LABS: Collection Type, Urine Clean Catch; Squamous Epithelial Cell,Urine 0 /hpf (0-5)
[2024-07-26 08:12] LABS: Basophils # (Auto) 0.1 Thou/mm3 (0.0-0.2); Basophils % (Auto) 1 % (0-2.5); Eosinophils # (Auto) 0.1 Thou/mm3 (0.0-0.5); Eosinophils % (Auto) 1 % (0-10); Hematocrit 44.4 % (41.0-53.0); Hemoglobin 15.2 g/dL (13.5-16.0); Immature Granulocytes % (Auto) 1 % (0-0); Immature Granulocytes Auto 0.08 Thou/mm3 (0.00-0.00); Lymphocytes # (Auto) 2.5 Thou/mm3 (1.0-4.8); Lymphocytes % (Auto) 38 % (10-50); Mean Corpuscular HGB Conc 34.2 g/dl (31.0-37.0); Mean Corpuscular Hemoglobin 30.2 pg (25.0-35.0); Mean Corpuscular Volume 88 fL (80-100); Monocytes # (Auto) 0.5 Thou/mm3 (0.0-0.8); Monocytes % (Auto) 8 % (0-12); Neutrophils # (Auto) 3.3 Thou/mm3 (1.8-7.7); Neutrophils % (Auto) 50 % (37-80); Nucleated Red Blood Cell % 0 /100 WBC (0); Platelet Count 233 Thou/mm3 (140-440); RDW Standard Deviation 40.4 fL (35.1-43.9); Red Blood Count 5.04 Miln/mm3 (4.50-5.90); White Blood Count 6.6 Thou/mm3 (3.8-10.6)
[2024-07-26 08:16] LABS: Bilirubin,Urine Negative (Negative); Blood,Urine Negative (Negative); Clarity,Urine Clear (Clear/Hazy); Color,Urine Lt-Yellow (Lt Yel-Yel); Glucose, Urine Negative (Negative); Ketones,Urine Negative (Negative); Leukocyte Esterase,Urine Negative (Negative); Nitrite,Urine Negative (Negative); Protein,Urine Negative (Neg - Trace); RBC,Urine 2 /hpf (0-3); Specific Gravity,Urine 1.015 (1.001-1.035); Urobilinogen,Urine Negative mg/dL (0.0-1.0); WBC,Urine 1 /hpf (0-5)
[2024-07-26 08:32] LABS: Alanine Aminotransferase 28 U/L (10-49); Albumin, Serum 5.3 gm/dL (3.5-5.0); Alkaline Phosphatase 74 U/L (46-116); Anion Gap 9 (7-16); Aspartate Amino Transferase 22 U/L (0-34); BUN/Creatinine Ratio 10 Ratio (12-20); Bilirubin,Total 1.3 mg/dL (0.3-1.2); Blood Urea Nitrogen 10 mg/dL (9-23); Calcium 10.2 mg/dL (8.3-10.6); Calcium (Corrected) 10.2 mg/dL (8.5-10.1); Carbon Dioxide 29.9 mMol/L (20.0-31.0); Chloride 100 mMol/L (98-107); Estimated Creatinine Clearance 89.3 mL/min (>60); Globulin 2.6 gm/dL (2.3-3.5); Glucose 94 mg/dL (74-106); Magnesium 2.1 mg/dL (1.6-2.6); Osmolality,Calculated 276 (275-295); Potassium 3.6 mMol/L (3.4-5.1); Sodium 139 mMol/L (136-145); Total Protein 7.9 gm/dL (5.7-8.2); Troponin I < 0.020 ng/mL (0.0-0.045); eGFR > 60 See Note
[2024-07-26 08:40] LABS: Amphetamine/Methamp Scrn,U Negative (Negative); Barbiturate Screen,Urine Negative (Negative); Benzodiazepines Screen,Urine Negative (Negative); Benzoylecgonine Screen, Ur Negative (Negative); Fentanyl Screen,Urine Negative (Negative); Opiate Screen,Urine Negative (Negative); THC Screen,Urine Negative (Negative)
[2024-07-26 08:53] LABS: B-Type Natriuretic Peptide < 20 pg/mL (0-100)
[2024-07-26 09:00] LABS: Partial Thromboplastin Time 26.3 Seconds (22.0-36.0); Prothrombin Time 11.2 Seconds (9.0-12.2)
--- NOTE | 2024-07-26 09:11 | EDNOTE_ITS ---
<Statement entered by Manisha Chamorro MD - 08/02/24 14:47> As co-signing physician, I was present and available for consult prn. I concur with the plan and care as documented by the midlevel provider. ED Chest Pain RME/HPI General Chief Complaint: Chest Pain Stated Complaint: IRREGULAR HEARTBEAT Time Seen by Provider: 07/26/24 09:11 Source: patient Arrival date/time: 07/26/24 07:20 29-year-old male with no known medical history presents to the emergency room with a chief complaint of lightheadedness, palpitations that began last night at 11 PM. Patient states within the last month he has had increased palpitations. Mode of arrival: ambulatory Limitations: no limitations RME / HPI RME / HPI narrative: 07/26/24 07:20 29-year-old male with no known medical history presents to the emergency room with a chief complaint of lightheadedness, palpitations that began last night at 11 PM. Patient states within the last month he has had increased palpitations. I have greeted and performed a focused initial assessment of this patient. A comprehensive ED assessment and evaluation of the patient, analysis of all test results, and completion of the medical decision making process will be conducted by additional ED providers. Related Data Previous Rx's ?Medication ?Instructions ?Recorded ibuprofen 800 mg tablet 800 mg PO TID PRN pain #30 tabs 06/12/22 ondansetron 4 mg disintegrating 4 mg PO Q8H PRN nausea and 07/16/23 tablet vomiting #10 tabs diphenhydramine HCl 25 mg capsule 25 mg PO Q8H PRN allergic symptoms 01/03/24 (Benadryl) #20 caps ibuprofen 600 mg tablet 600 mg PO Q6H #30 tabs 01/03/24 Allergies Allergy/AdvReac Type Severity Reaction Status Date / Time No Known Allergies Allergy Verified 07/26/24 07:23 Review of Systems Review of Systems Systems Reviewed: All systems reviewed, normal except as documented Constitutional Constitutional: Reports system reviewed and no additional complaints, except as documented, Denies fatigue, Denies fever(s), Denies headache(s) and Denies weakness Eyes Eyes: Reports system reviewed and no additional complaints, except as documented, Denies blurry vision and Denies change in vision ENT Ears, Nose, Mouth, and Throat: Reports system reviewed and no additional complaints, except as documented, Denies otalgia, Denies headache(s), Denies nasal congestion, Denies throat swelling and Denies vertigo Cardiovascular Cardiovascular: Reports system reviewed and no additional complaints, except as documented, Denies chest pain, Denies dyspnea and Denies dyspnea on exertion Respiratory Respiratory: Reports system reviewed and no additional complaints, except as documented, Denies chest congestion, Denies cough, Denies dyspnea, Denies dyspnea on exertion and Denies wheezing Gastrointestinal Gastrointestinal: Reports system reviewed and no additional complaints, except as documented, Denies abdominal pain, Denies cramping, Denies nausea and Denies vomiting Genitourinary Genitourinary: Reports system reviewed and no additional complaints, except as documented, Denies dysuria and Denies hematuria Musculoskeletal Musculoskeletal: Reports system reviewed and no additional complaints, except as documented and Denies back pain Integumentary/Breasts Skin/Breast: Reports system reviewed and no additional complaints, except as documented and Denies wounds Neurologic Neurologic: Reports system reviewed and no additional complaints, except as documented, Denies confusion, Denies headache(s), Denies lack of coordination, Denies vertigo and Denies weakness Psychiatric Psychiatric: Reports system reviewed and no additional complaints, except as documented, Denies anxiety, Denies confusion, Denies depression, Denies paranoia, Denies suicidal ideation and Denies tactile hallucinations Endocrine Endocrine: Reports system reviewed and no additional complaints, except as documented and Denies fatigue Hematologic/Lymphatic Hematologic/Lymphatic: Reports system reviewed and no additional complaints, except as documented and Denies lymphadenopathy Allergic/Immunologic Allergic/Immunologic: Reports system reviewed and no additional complaints, except as documented, Denies throat swelling, Denies urticaria and Denies wheezing ED Exam General Limitations: Present no limitations General appearance: Present alert and in no apparent distress Head Head exam: Present atraumatic Eye Eye exam: Present normal appearance, PERRL and EOMI ENT ENT exam: Present normal exam, normal oropharynx and mucous membranes moist Neck Neck exam: Present normal inspection, full ROM and trachea midline Chest Chest inspection: Present normal inspection and symmetric chest wall rise Respiratory Respiratory exam: Present normal lung sounds bilaterally Cardiovascular Cardiovascular exam: Present regular rate, normal rhythm and normal heart sounds Abdominal Exam Abdominal exam: Present soft and normal bowel sounds Extremities Exam Extremities exam: Present normal inspection and full ROM Back Exam Back exam: Present normal inspection and full ROM Neurological Exam Neurological exam: Present alert, oriented X3 and CN II-XII intact Psychiatric Psychiatric exam: Present normal affect and normal mood Skin Skin exam: Present warm, dry, intact and normal color Course Quality Measures none Orders Category Date Time Status Processing Rep NOW Care 07/26/24 08:01 Completed EKG (ED ONLY) *Do not use* NOW Care 07/26/24 07:33 Completed EKG (ED Only) Stat Exams 07/26/24 07:33 Draft B-Type Natriuretic Peptide Stat Lab 07/26/24 07:44 Completed CBC Stat Lab 07/26/24 07:44 Completed Comprehensive Metabolic Panel Stat Lab 07/26/24 07:44 Completed Drug Screen,Urine Stat Lab 07/26/24 07:44 Completed Magnesium Stat Lab 07/26/24 07:44 Completed Partial Thromboplastin Time Stat Lab 07/26/24 07:44 Completed Prothrombin Time with INR Stat Lab 07/26/24 07:44 Completed Troponin I Stat Lab 07/26/24 07:44 Completed Troponin I Stat Lab 07/26/24 10:12 Completed Urinalysis Stat Lab 07/26/24 07:44 Completed Vital Signs Vital signs: Vital Signs Temperature 98.7 F 07/26/24 07:34 Pulse Rate 73 07/26/24 07:34 Respiratory Rate 19 07/26/24 07:34 Blood Pressure 140/87 H 07/26/24 07:34 Pulse Oximetry (%) 95 07/26/24 07:34 Oxygen Delivery Method Room Air 07/26/24 07:34 O2 saturation 95% within normal limits Procedures -ED EKG Interpretation #1: Date of EK07/26/24 Time of EK:41 Rate: 65 Interpretation: Reviewed by me EKG Impression: Normal sinus rhythm Additional EKG comment: EKG was completed and shows normal sinus rhythm at [address] deviation no PVCs Chest Pain MDM Narrative MDM Narrative:: 29-year-old male with no known medical history presents to the emergency room with a chief complaint of lightheadedness, palpitations that began last night at 11 PM. Patient states within the last month he has had increased palpitations. Clinically the patient appears nontoxic and in no apparent distress. Physical examination shows strong and regular rhythm and normal pulses. The patient denies any chest pain or shortness of breath. Patient states has been having palpitations and can feel them at home when lying down. This has been going on for the last month and patient has seen his primary care provider and has gotten a referral for a harness cutter which she will see in 2 weeks. CBC and CMP were negative for any acute findings troponin was negative EKG shows normal sinus rhythm at [address] deviation. Repeat troponin was negative. Patient was discharged and educated to follow-up with primary care provider return to the emergency room for any evidence of worsening signs or symptoms Patient data External records reviewed:: [facility] previous records Clinical information provided by:: patient Social determinants that could affect healthcare access:: none Patient has the following chronic illnesses:: No chronic illness How is presenting disease/condition affected by chronic disease/condition?: no chronic disease Evaluation data The following diagnostics were reviewed and interpreted by me:: lab results and radiology exam(s) Lab and/or radiology exams considered but not ordered:: Labs and radiology exams considered in order Interpretation Summary: N/A Medications / Prescriptions Medications or Prescriptions considered but not ordered:: N/A Medication administrations:: N/A Consultations Consultation(s) initiated? (list below): No Diagnosis Chest Pain Differential Diagnosis: stable angina, unstable angina pectoris, atypical chest pain, st elevation myocardial infarction, chest pain and other (Palpitations) Most likely diagnosis given after review of the tests above:: Palpitations Admission Indicated Admission indicated?: not indicated Admission Request Was there a request for admission?: No Disposition Plan Disposition Plan: Discharge Discharge Attestation Discharge Attestation: The patient and all family members were given an opportunity to ask questions and understood the discharge instructions. Discharge instructions specifically effects, indications for sooner follow up or return to the emergency department, and the expected course of current diagnosis. Patient condition: Stable Discharge Plan Plan Patient Disposition: HOME (Self Care) Disposition Comment: Stable Prescriptions/Referrals Prescriptions/Med Rec: No Action ibuprofen 800 mg tablet 800 mg PO TID PRN (Reason: pain) Qty: 30 0RF ondansetron 4 mg tablet,disintegrating 4 mg PO Q8H PRN (Reason: nausea and vomiting) Qty: 10 0RF diphenhydramine HCl [Benadryl] 25 mg capsule 25 mg PO Q8H PRN (Reason: allergic symptoms) Qty: 20 0RF ibuprofen 600 mg tablet 600 mg PO Q6H Qty: 30 0RF Referrals: No Primary/Family,Physician [Primary Care Provider] - In 1 week Problem List Clinical Impression: Chest pain, non-cardiac Patient/Caregiver Discharge Instructions Education Materials: ED Chest Pain, Noncardiac Additional Instructions: Please follow-up with your primary care provider in the next 24 to 48 hours. Please keep your appointment with your harness cutter. At this time your blood work and cardiac workup was within normal limits. For any evidence of worsening signs or symptoms please return to the emergency room immediately Print Language: Kinyarwanda Stand Alone Forms: Sylvia Award Info., Patient Portal Info Letter PA/ELECTRONIC EQUIPMENT REPAIRER Supervising Physician PA/ELECTRONIC EQUIPMENT REPAIRER Supervising Physician: Dr. CHAMORRO
[2024-07-26 10:47] LABS: Troponin I < 0.020 ng/mL (0.0-0.045)
== END 2024-07-26 11:15 | disposition home or self-care (01) ==
PROVIDERS: Nurse Practitioner Family; Emergency Provider Emergency Medicine
DX: R07.89 Other chest pain (principal)
CPT/HCPCS: 36415; 80053; 80307; 81001; 83735; 83880; 84484; 85025; 85610; 85730; 93005; 99283